=== PATIENT | female | born 1990 | race Caucasian/White ===

== ENCOUNTER → 2020-09-29 | Outpatient (CLI) | payer OTHER ==
[2020-09-30 08:08] LABS: FOLLICLE STIMULATING HORMONE 4.7 mIU/mL (.); LUTEINIZING HORMONE 5.1 mIU/mL (.); PROLACTIN 5.9 ng/mL (4.8-23.3)
[2020-10-01 17:09] LABS: TESTOSTERONE FREE, (DIRECT) 2.6 pg/mL (0.0-4.2)
== END | disposition home or self-care (01) ==
LOC: US 09-21 15:00 → LAB 14:55 → US 15:00
PROVIDERS: ATTEND Nurse Practitioner Women's Health
DX: N88.8 Other specified noninflammatory disorders of cervix uteri (principal); N83.292 Other ovarian cyst, left side; N93.9 Abnormal uterine and vaginal bleeding, unspecified

== ENCOUNTER → 2020-12-01 | Outpatient (CLI) | payer BC, OTHER | END | disposition home or self-care (01) | LOC: US 10:18 | PROVIDERS: ATTEND Nurse Practitioner Women's Health | DX: N83.202 Unspecified ovarian cyst, left side (principal) ==